=== PATIENT | male | born 1950 | race Caucasian/White ===

== ENCOUNTER 2017-02-06 19:53 | Emergency (ER) | payer OTHER ==
[~2017-02-06] VITALS: Ht 177.8 cm; Wt 104.3 kg
[2017-02-06 20:11] VITALS: BP 150/79
--- NOTE | 2017-02-06 20:31 | NUR ---
Patient ambulated to bed 04.
--- NOTE | 2017-02-06 20:31 | NUR ---
PATIENT PRESENTS TO ED WITH [place] 8/10 PAIN AND ANXIETY X 2 HOURS AGO S/P PT JUST FOUND OUT A MEMBER OF HIS FAMILY HAS . PT DENIES N/V/D; SKIN IS PINK/WARM/DRY; AAOX4 WITH EVEN AND STEADY GAIT; LUNGS CLEAR BL; HR EVEN AND REGULAR; PT DENIES ANY FEVER, CP, SOB, OR COUGH AT THIS TIME; PATIENT STATES PAIN OF 8/10 AT THIS TIME; VSS; PATIENT POSITIONED FOR COMFORT; HOB ELEVATED; BEDRAILS UP X2; BED DOWN. ER MD MADE AWARE OF PT STATUS.
--- NOTE | 2017-02-06 21:06 | NUR ---
Dr. Alexander evaluating patient at bedside.
[2017-02-06] MEDS ORDERED: LORazepam 1 MG TAB PO ONE (21:10)
[2017-02-06 21:48] VITALS: BP 125/75
--- NOTE | 2017-02-06 21:48 | NUR ---
Patient discharged with v/s stable. Written and verbal after care instructions given and explained. Patient alert, oriented and verbalized understanding of instructions. Ambulatory with steady gait. All questions addressed prior to discharge. ID band removed. Patient advised to follow up with PMD. Rx of ATIVAN 1MG TAB given. Patient educated on indication of medication including possible reaction and side effects. Opportunity to ask questions provided and answered.
== END 2017-02-06 21:48 | disposition home or self-care (01) ==
LOC: MED 19:53
DX: I10 Essential (primary) hypertension (principal); F41.9 Anxiety disorder, unspecified